=== PATIENT | female | born 1965 | race Caucasian/White ===

== ENCOUNTER 2017-08-29 10:32 | Emergency (ER) | payer MEDICAID, SELFPAY ==
[2017-08-29 10:33] VITALS: BP 174/92; PULSE 93; RESP 18; TEMP 36.6; O2SAT 97; BMI 43.0
--- NOTE | 2017-08-29 11:01 | CT_ITS ---
STUDY: CT ABDOMEN AND PELVIS WITHOUT CONTRAST REASON FOR EXAM: Female, 52 years old. Right flank pain RADIATION DOSAGE (If Supplied By Facility): CTDIvol = ( 22.49 ) mGy, DLP = ( 1219.29 ) mGycm TECHNIQUE: Transaxial images were obtained from the lower chest to the upper thighs without oral contrast, and without intravenous contrast. Sagittal and coronal images were reconstructed. Individualized dose optimization techniques were used for this CT. COMPARISON: None. FINDINGS: There is minimal dependent atelectasis in both lung bases. There is no pleural effusion. The heart is normal in size. The liver is unremarkable. There are small calcifications in the lumen of the gallbladder. The spleen is unremarkable. The pancreas is unremarkable. The adrenal glands are unremarkable. There are a few parapelvic cysts in the right kidney. There is no dilatation of the collecting system in the right kidney. The left kidney is unremarkable. There is no dilatation of the collecting system in the left kidney. The stomach is unremarkable. The small bowel is unremarkable. The colon is unremarkable. The appendix is surgically absent. There are minimal scattered vascular calcifications. The IVC is unremarkable. The retroperitoneum is unremarkable. There is no free fluid in the abdomen. The urinary bladder is unremarkable. There is absence of the uterus consistent with a prior hysterectomy. There are no abnormal masses in the adnexal regions. There are small phleboliths scattered in the lower pelvis. The soft tissues are unremarkable. There are mild degenerative changes in the visualized spine. CT/Abdomen/Pelvis without Cont IMPRESSION: There is no evidence of renal stones or urinary tract dilatation with attention to the right side. There are a few gallstones in the lumen of the gallbladder without evidence of wall thickening or surrounding inflammation on CT. There are no acute bowel abnormalities. There is no ascites, free air, inflammation or significant lymphadenopathy. There is hepatomegaly. Electronically Signed: Brittany Win MD at 12:46 EDT Tel Direct: [phone], Service support ,
[2017-08-29 11:31] LABS: Absolute Lymphocyte Count 2.41 X10^3/ul (0.83-4.51); Absolute Neutrophil Count 5.2 X10^3/uL (2.0-7.7); Basophil# 0.02 X10^3/uL; Basophil% 0.2 % (0-1); Eosinophil# 0.15 X10^3/uL; Eosinophils% 1.8 % (0-5); Hemoglobin 15.6 g/dl (12.0-15.0); Lymphocyte # 2.41 X10^3/ul (4.0); Lymphocyte % 29.5 % (19-41); Mean Corp Hgb Conc 32.5 g/gl (32-36); Mean Corpuscular Hgb 29.1 pg (27.0-32.0); Mean Corpuscular Volume 89.4 fL (81-99); Mean Platelet Vol. 9.9 fl (6.2-12.0); Monocyte# 0.37 X10^3/uL; Monocyte% 4.5 % (0-10); Neutrophil # 5.17 X10^3/uL (2.7-7.7); Neutrophil % 63.5 % (47-70); Platelet Count 264 K/mm3 (150-450); RBC Distribution Width CV 13.3 % (11.6-14.6); RBC Distribution Width SD 43.3 fl (35.1-43.9); Red Blood Count 5.37 M/mm3 (4.2-5.4); White Blood Count 8.2 K/mm3 (4.4-11.0)
[2017-08-29 11:36] LABS: POSITIVE COUNT NO; POSITIVE DIFFERENTIAL NO; POSITIVE MORPHOLOGY NO
[2017-08-29] MEDS: 0.9% Normal Saline 1,000 ML 250 ML IV (11:36)
[2017-08-29] MEDS: Ondansetron 4 MG/2 ML Vial 6 MG IV (11:37)
[2017-08-29 11:45] LABS: Anion Gap 8 (5-15); BUN 10 mg/dL (7-18); BUN/Creat Ratio 18.3 RATIO (10-20); Calcium,Total 9.1 mg/dL (8.5-10.1); Chloride 99 mmol/L (98-107); Creatinine, Serum 0.55 mg/dL (0.55-1.02); EST Glomerular Filtration Rate 124 mL/min (>60); Est Glom Filt Rate - Afr Amer 150 mL/min (>60); Estimated Creatinine Clearance 84.97 ml/min; Glucose 220 mg/dL (74-106); Potassium 4.4 mmol/L (3.5-5.1); Sodium Level 138 mmol/L (136-145)
[2017-08-29 12:32] VITALS: BP 154/79; PULSE 84; RESP 16; O2SAT 96
--- NOTE | 2017-08-29 12:32 | ED.RN ---
ARM SWOLLEN AROUND IV SITE. NO REDNESS NOTED AT THIS TIME. MD AWARE, ICE PACK APPLIED BY .
--- NOTE | 2017-08-29 13:06 | ED.DCSUM_ITS ---
- ER Visit Summary Date of Service: 08/29/17 Chief Complaint: Back and abdominal pain History of Present Illness: The patient is a 52 F she reports constant right- sided back and abdominal pain past 3 days. It does wax and wane. She states she cannot find a position of comfort. She states the pain is less if she lies on her right side. She does complain of nausea without vomiting. She denies dysuria, frequency, urgency or hematuria. She has no history of renal ureterolithiasis. She denies history of liver or gallbladder problems. She denies any intolerance to greasy or fried foods. She denies fever, chills night sweats. She denies cough, shortness of breath or difficulty breathing. She reports occasionally it is more difficult to breathe because of the pain. She denies any chest discomfort. She denies any reflux type symptoms. She denies hematemesis, melena hematochezia. Past medical history of type 1 diabetes and hypertension. She is status post appendectomy many years ago. Physical Examination: Blood pressure is 174/92. She is afebrile. Her vital signs are otherwise unremarkable. HEENT exam unremarkable. Heart is regular without murmur, gallop or rub. S1 and S2 are normal. Lungs are clear to auscultation with good movement of air bilaterally. Abdomen is remarkable for tenderness right side. She has a negative Locke sign. She has no CVA tenderness noted. She has no ventral or inguinal hernia. There is no guarding or rebound tenderness. There is minimal edema of the lower extremities which patient states is not abnormal for her. She informed me she was told this is secondary to her neuropathy. Patient is alert and oriented ?3. Motor is 5 over 5. Sensory is intact. DTRs are symmetric with no clonus or Babinski sign. Cranial 2 through 12 are intact. Cerebellar testing is normal. Test Results: CT of the abdomen and pelvis without contrast reveals cholelithiasis. There is no thickening of the gallbladder wall or pericholecystic fluid. CBC, BMP and liver are remarkable only for glucose of 220. Emergency Department Course and Treatment: The patient description location of pain concerned that this may represent ureterolithiasis with obstruction. UA was ordered along with CBC and BMP. She was medicated with morphine and Zofran. She had marked improvement. After reviewing CT and receiving interpretation by radiologist a hepatic panel was added. Treatment Plan: Since her pain is markedly better she is not febrile, and her hepatic and CBC unremarkable call was placed to Dr. Parvez Gasca for outpatient follow-up. Disposition: Disposition discharged home with opiate analgesia and surgical follow-up Impression: Right-sided abdominal pain secondary to biliary colic with cholelithiasis This note was generated with iAdvize dictation software. It may contain incorrect words, spelling, and punctuation that were not noted in review of the chart prior to signing ED Disposition - Plan for ED Patient: Disposition: Home or Assisted Living Chief Complaint: Flank Pain Instructions: Discharge Instructions for Gallstones Prescriptions: Oxycodone HCl/Acetaminophen [Percocet 5/325] 1 tab PO Q6H PRN PRN 5 Days #20 tab PRN Reason: Abdominal pain Referrals: [facility] Doctor,Out of [Primary Care Provider] - Marty Gasca MD [STAFF PHYSICIAN] - 3-5 Days
[2017-08-29] MEDS: oxyCODONE 5 MG Tablet PO (13:36)
[2017-08-29 13:41] LABS: AST(SGOT) 17 U/L (15-37); Alanine Aminotransfer ALT/SGPT 21 U/L (13-56); Albumin, Serum 3.3 g/dL (3.2-5.0); Alkaline Phosphatase 46 U/L (45-117); Bilirubin, Direct 0.08 mg/dL (0.00-0.30); Globulin 4.1 g/dL (2.2-4.2); Protein, Total 7.4 g/dL (6.4-8.2)
[2017-08-29 15:15] VITALS: BP 154/89; PULSE 99; RESP 18; O2SAT 99
== END 2017-08-29 15:16 | disposition home or self-care (01) ==
PROVIDERS: Emergency Provider Emergency Medicine
DX: K80.50 Calculus of bile duct without cholangitis or cholecystitis without obstruction (principal); R10.9 Unspecified abdominal pain; E10.40 Type 1 diabetes mellitus with diabetic neuropathy, unspecified; I10 Essential (primary) hypertension; F32.9 Major depressive disorder, single episode, unspecified; Z90.89 Acquired absence of other organs; Z79.899 Other long term (current) drug therapy
CPT/HCPCS: 74176; 80048; 80076; 85025; 96361; 96374; 99285; J7030; A4216; J2405

== ENCOUNTER → 2017-08-30 08:36 | Outpatient (CLI) | payer MEDICAID, SELFPAY ==
--- NOTE | 2017-08-30 08:39 | CT_ITS ---
STUDY: CT ABDOMEN AND PELVIS WITH CONTRAST REASON FOR EXAM: Female, 52 years old. Right flank pain RADIATION DOSAGE (If Supplied By Facility): CTDIvol = ( 18.74 ) mGy, DLP = ( 1335.61 ) mGycm TECHNIQUE: Transaxial images were obtained from the lower chest to the upper thighs with oral contrast. 100 ml of Isovue 300 contrast was administered. Sagittal and coronal images were reconstructed. Individualized dose optimization techniques were used for this CT. COMPARISON: CT abdomen and pelvis without contrast dated August 29, 2014 FINDINGS: There is minimal dependent atelectasis in both lung bases. There is no pleural effusion. The heart is normal in size. The liver is unremarkable. Faint calcifications are again seen in the lumen of the gallbladder. The spleen is unremarkable. The pancreas is unremarkable. The adrenal glands are unremarkable. There are parapelvic cysts in the right kidney. There is no dilatation of the collecting system in the right kidney. The left kidney is unremarkable. There is no dilatation of the collecting system in the left kidney. The stomach is unremarkable. There is a 2.6 cm diverticulum off the second portion of the duodenum. The colon is unremarkable. The appendix is surgically absent. There are minimal vascular calcifications. The inferior vena cava is unremarkable. The retroperitoneum is unremarkable. There is no free fluid in the abdomen. The urinary bladder is unremarkable. There is absence of the uterus likely from prior hysterectomy. There are no abnormal masses in the adnexal regions. The soft tissues of the abdominal wall are unremarkable. There are mild degenerative changes in the visualized spine. CT/Abdomen/Pelvis WITH Contrast IMPRESSION: There is no urinary tract dilatation bilaterally. Parapelvic cysts are again seen in the right kidney. There are no acute bowel abnormalities. There is no ascites, free air, or significant lymphadenopathy. Faint gallstones are again seen in the lumen of the gallbladder without evidence of wall thickening. Ultrasound can be obtained if further evaluation of the gallbladder is needed. Electronically Signed: Brittany Win MD at 11:24 EDT Tel Direct: [phone], Service support ,
[2017-08-30 08:48] LABS: Mucous, Urine 0 SEEN /hpf (<or=2+); Red Blood Cells-Urine 0 SEEN /hpf (0-5)
[2017-08-30 10:16] LABS: Color, Urine Yellow (Yellow); Glucose, Dipstick 1000 mg/dl (Normal); Ketone-Dipstick Negative (Negative); Leukocyte Esterase-Dipstick 25 /ul (Negative); Nitrite-Dipstick Negative (Negative); Occult Blood-Urine Negative /ul (Negative); Protein-Dipstick 15 mg/dl (Negative); Specific Gravity, Urine 1.025 (1.002-1.030); Urine Bilirubin Dipstick Negative (Negative); Urine Clarity Clear (Clear); Urine Urobilinogen Normal (Normal)
[2017-08-30 10:26] LABS: Bacteria RARE /hpf (None Seen); Squamous Epithelial Cells - UA 0-5 SEEN /hpf (5-10); White Blood Cells 0-5 SEEN /hpf (0-5)
[2017-08-30 10:27] LABS: Yeast-Urine RARE /hpf (None Seen)
== END ==
PROVIDERS: Visit Provider Surgery
DX: R10.9 Unspecified abdominal pain (principal)
CPT/HCPCS: 74177; 81001; Q9967

== ENCOUNTER → 2017-08-31 10:09 | Outpatient (CLI) | payer MEDICAID, SELFPAY ==
--- NOTE | 2017-08-31 10:11 | US_ITS ---
STUDY: ABDOMINAL ULTRASOUND - RIGHT UPPER QUADRANT REASON FOR VISIT: Female, 52 years old. Right upper quadrant abdominal pain for one week. TECHNIQUE: Ultrasound evaluation of the right upper quadrant was performed with real-time and static bran-scale imaging. TECHNICAL QUALITY: Adequate. COMPARISON: CT the abdomen and pelvis dated August 30, 2017. FINDINGS: Liver: The liver measures 18.3 cm. There is a heterogeneous echogenicity of the liver. The bile ducts are within normal limits. There is hepatic color flow. The direction of portal flow is hepatopetal. There is no demonstrated mass lesion. Gallbladder: There is a markedly distended gallbladder. The gallbladder wall measures 2.9 mm. There is a positive sonographic Locke's sign. There is no pericholecystic fluid. There are multiple echogenic structures within the gallbladder, consistent with multiple gallstones. Common Bile Duct (C.B.D.): The common bile duct measures 5.0 mm. Pancreas: Normal size of the head, body and tail of the pancreas. There is increased echogenicity of the pancreas. There is no demonstrated pancreatic mass or cyst. Right Kidney: Normal size of the right kidney. The right kidney measures 14.0 x 6.2 x 6.6 cm. Normal renal cortex. The right cortex measures 1.8 cm. There is a parapelvic cyst at the upper pole the right kidney measuring 2.2 x 1.9 x 2.2 cm. There is no right hydronephrosis. US/Gallbladder IMPRESSION: 1. Very distended gallbladder suggesting gallbladder hydrops. 2. Cholelithiasis with positive sonographic Locke sign suggests sequela of acute cholecystitis. 3. Common bile duct is at the upper limits of normal in size. 4. Hepatic steatosis. Electronically Signed: Renetta Jon MD at 11:30 EDT , Service support ,
== END ==
PROVIDERS: Visit Provider Surgery
DX: K80.20 Calculus of gallbladder without cholecystitis without obstruction (principal); R10.11 Right upper quadrant pain
CPT/HCPCS: 76705

== ENCOUNTER 2017-09-06 07:40 | Day surgery (SDC) | payer MEDICAID, SELFPAY ==
[2017-09-06] VITALS (7 sets, daily range): BP systolic 113–150; BP diastolic 73–80; PULSE 85–103; RESP 14–16; TEMP 35.7–36.5; O2SAT 92–98; BMI 42.7
--- NOTE | 2017-09-06 | GALL_PTH ---
PATIENT: NICKO CROCKER I LOC: [facility] [place] U#:[id number] AGE/SX: 52/F ROOM: RE09/06/[address]: Dr. Marty Gasca MD : 1965 BED: DIS: 09/06/2017 SPEC #: [id number] RECD: 09/06/17 11:22 STATUS: SAMSON LEONOR #: [id number] DEJA: 09/06/17 00:[address]: Marty Gasca DEPT: SURGICAL PATHOLOGY RECD BY: Sung Hoskins ENTERED: 09/06/17 11:23 SP TYPE: ADITHYA PARKER DR: Tanya Colvin Tissues: Gallbladder, NOS Procedures: Surgery Specimen Level III HEADER OPERATION: Laparoscopic cholecystectomy PRE-OP DIAGNOSIS: Calculus of gallbladder with acute on chronic cholecystitis without obstruction; abdominal pain RU TISSUE SUBMITTED: Gallbladder MICROSCOPIC DIAGNOSIS Gallbladder: Chronic cholecystitis and cholelithiasis. SJ:cipriano 4/6/18 MICROSCOPIC DESCRIPTION Slides are reviewed. GROSS DESCRIPTION Received is one container labeled with the patient's name and designated gallbladder. The specimen consists of a gallbladder measuring 10.5 x 3.8 x 2 cm. The external surface is smooth and glistening. Focally, it is granular, hemorrhagic and contains cautery artifact. The lumen of the gallbladder contains mucoid bile and black calculi ranging in size from 0.5 to 1 cm. The mucosa is bile-stained and without any mass lesions. The gallbladder wall averages 0.2 cm in thickness and is free of mass lesions. G[employer]ination Specialist sections of the gallbladder and the cystic duct are submitted in one cassette. / AM:cipriano 09/06/17 TC:3 CPT: 95708
--- NOTE | 2017-09-06 07:47 | EKG12_ITS ---
Test Reason : PREOP Blood Pressure : / mmHG Vent. Rate : 095 BPM Atrial Rate : 095 BPM P-R Int : 134 ms QRS Dur : 100 ms QT Int : 362 ms P-R-T Axes : 010 -52 013 degrees QTc Int : 454 ms Normal sinus rhythm Left anterior fascicular block Abnormal ECG No previous ECGs available Confirmed by MARIANNA MUELLER, FRED ([id number]), assistant production editor JIMY DUONG ([id number]) on 09/11/2017 9:43:29 AM Referred By: Marty Gasca Confirmed By:FRED CABRAL MD
[2017-09-06 08:30] LABS: Bedside Glucose 213 mg/dL (70-110)
[2017-09-06 08:31] LABS: Hemoglobin A1c 10.6 % (4.2-6.3)
--- NOTE | 2017-09-06 08:46 | DCINST_ITS ---
Discharge Diet: Light diet - advance as tolerated Discharge Activity: May Not Drive - for 2-3 days or while taking narcotic pain medications., - - Do not drive, work heavy equipment or sign legal documents for 24 hours. May shower in (days): 1 - with the bandage in place. Additional Activity Instructions:: Pain medication may cause nausea. You should typically eat light foods as you take your pain medications. Pain medication may also cause constipation. If this is a problem for you, please discuss with your doctor. Call your doctor if your incision/area has: Continuous Slow Oozing, Sudden Increased Bleeding, Increased Pain/ Swelling, Increased Redness, Foul Smelling Discharge Call your doctor if you observe: Fever of 101 or Higher Suture Line Care: Avoid Pulling/Pushing, Avoid Pinching/Bending Additional Dressing/Incision Instructions:: Leave operative bandaids on for 2 days. When you remove dressing, leave Steri-Strips on until your follow-up appointment, or until the Steri-Strips fall off on their own. Allergies/Adverse Reactions: Allergies Penicillins Allergy (Verified 09/04/17 14:55) Hives Medications to take at Discharge Duloxetine Hcl [Cymbalta] 1 tab PO DAILY 08/29/17 Lisinopril [Lisinopril] 1 tab PO DAILY 08/29/17 Novolog Mix 70-30 Vial 45 units SQ BID 08/29/17 Oxycodone HCl/Acetaminophen [Percocet 5/325] 1 tab PO Q6H PRN PRN 5 Days #20 tab 08/29/17 traMADol [Ultram] 2 tab PO BID 08/29/17 Oxycodone HCl/Acetaminophen [Percocet 5/325] 1 - 2 tab PO Q4H PRN PRN 4 Days # 30 tab 09/06/17 The following prescriptions were given: Oxycodone HCl/Acetaminophen [Percocet 5/325] 1 - 2 tab PO Q4H PRN PRN 4 Days # 30 tab PRN Reason: Pain Primary Care Physician: Tanya Colvin [Primary Care Provider] - Please Follow Up With: Marty Gasca MD - Please call [phone] to schedule an appointment. When: 7 days after your surgery.
--- NOTE | 2017-09-06 08:46 | PCM.OPRPT ---
Problem List (1) Calculus of gallbladder with acute and chronic cholecystitis without obstruction Status: Acute (2) Right upper quadrant pain Status: Acute Report of Operation Date of Procedure: 09/06/17 Pre-Operative Diagnosis: k80.12 calculus of the gallbladder with acute on chronic cholecystitis without obstruction. r10.11 right upper quadrant abdominal pain Post-Operative Diagnosis: Same Surgery/Procedure Performed:: 86913 laparoscopic cholecystectomy Type of Anesthesia:: General Anesthesiologist: Chente Chang Description of Procedure: Patient was brought in the operating room placed in the supine position. Under excellent general endotracheal the patient the abdomen was sterilely prepped and draped in the usual fashion. Local was injected supraumbilically incision was carried down to the fascia the fascia was grasped with a Pako. Varies needle was placed inside the abdomen. The abdomen was insufflated to 15 torr. A 10/12 trocar was placed without difficulty. Patient was placed up in the head up and rotated the left position. The fundus of the gallbladder was grasped retracted in cephalad direction moderate amount of adhesions were taken off of the liver and the gallbladder with electrocautery. I dissected out the cystic duct. I place hemoclips proximally and distally ligated the duct. Identified the cystic artery. Please Hem-o-haley clips proximally and distally and ligated the artery. I deliver the gallbladder from the gallbladder bed with use of electrocautery had no spillage of bile and no spillage of stones. I placed a specimen a specimen bag delivered through the umbilical port without difficulty. Reinflated the abdomen. I inspected the right upper quadrant used electrocautery for good hemostasis on the liver bed. I remove the trochars under direct visualization. Good hemostasis was noted. Close the fascia the umbilical port with a [id number]-uw-[id number] stitch of 0 Vicryl. Skin incisions were closed with subcuticular stitches of 4-0 Monocryl. Steri-Strips are applied sterile dressings were applied and the patient tolerated the procedure well. - Admit VTE Documentation VTE Present on Admission: No VTE Mechan Device Prophylaxis: SCD's VTE Pharm Prophylaxis ordered?: No Reason prophylaxis not ordered:: Treatment Not Indicated
[2017-09-06] MEDS: Clindamycin 900 MG/50 ML BAG 75 MG IV (08:48)
[2017-09-06] MEDS: Bupivacaine Mpf 0.5% 30 ML VIAL (08:58)
[2017-09-06 10:05] LABS: Bedside Glucose 216 mg/dL (70-110)
== END 2017-09-06 11:55 | disposition home or self-care (01) ==
LOC: SDC 07:40 → AC 07:41
PROVIDERS: Anesthesiology; Visit Provider Surgery
PROC: (CPT 47610; principal; 2017-09-06 08:45)
DX: K80.12 Calculus of gallbladder with acute and chronic cholecystitis without obstruction (principal); E11.40 Type 2 diabetes mellitus with diabetic neuropathy, unspecified; I10 Essential (primary) hypertension; F41.9 Anxiety disorder, unspecified; F32.9 Major depressive disorder, single episode, unspecified; Z87.19 Personal history of other diseases of the digestive system; Z87.448 Personal history of other diseases of urinary system; Z78.0 Asymptomatic menopausal state; Z79.4 Long term (current) use of insulin; Z79.899 Other long term (current) drug therapy
CPT/HCPCS: 47562; 82962; 83036; 88304; 93005; J7120; J2405

== ENCOUNTER 2017-09-08 09:51 | Emergency (ER) | payer MEDICAID, SELFPAY ==
[2017-09-08 09:52] VITALS: BP 159/76; PULSE 102; RESP 16; TEMP 36.7; O2SAT 98; BMI 94.7
--- NOTE | 2017-09-08 10:05 | NURSING ---
DR JEROME PAGED
--- NOTE | 2017-09-08 10:09 | ED.DCSUM_ITS ---
- ER Visit Summary Date of Service: 09/08/17 Chief Complaint: [] Burning at umbilicus status post cholecystectomy History of Present Illness: The patient is a 52 F [] history diabetes she had reports unremarkable cholecystectomy by Dr. Gasca went fine no complications that she reports Sunday she began having a sense of burning around the umbilical port site she noticed no drainage no warmth, she is on Percocet but each time she takes a Percocet tablet she has nausea and then starts to vomit she has been able to take p.o. liquids, she is passing gas per rectum her urine outputs been normal her blood sugars have been within normal range. The other port sites are unremarkable and in fact she takes her finger and points directly to the umbilical port site as the only area of pain and she complains of burning here, her review of systems otherwise negative Physical Examination: [] She is a short stocky woman she is in no distress her vitals are within normal range afebrile HEENT cardiac exam negative lungs are clear heart tones are normal the abdomen is soft the port sites are intact she has no signs of rebound or guarding in fact her only complaint of pain is around the umbilical port site the Steri-Strips are intact they are to the areas dry. There is no fluctuance or warmth or drainage I cannot really reproduce the pain anyway by palpation, there is no signs of a hernia or infection I can actually shake her abdomen and it causes her no pain her upper lower extremities are unremarkable Test Results: [] Emergency Department Course and Treatment: [] All the above IV fluids screening labs are obtained I spoke with Dr. Gasca discussed the case with him in detail will obtain screening labs treat her pain Labs are all unremarkable she is feeling better abdomen soft and again nontender just this sense of burning to the umbilical region that is better again we did discuss case Dr. Gasca given all the above she is comfort with discharge home we will switch to [place] and Helen have helped Dr. Gasca next few days and return for change in symptoms Treatment Plan: [] Disposition: [] Home stable Impression: [] Umbilical burning pain related to surgical port site status post laparoscopic cholecystectomy This note was generated with easy2comply ([employer])ation software. It may contain incorrect words, spelling, and punctuation that were not noted in review of the chart prior to signing ED Disposition - Plan for ED Patient: Chief Complaint: Abd Pain Referrals: Tanya Colvin [Primary Care Provider] -
[2017-09-08 10:24] LABS: Absolute Neutrophil Count 8.6 X10^3/uL (2.0-7.7); Basophil# 0.03 X10^3/uL; Basophil% 0.3 % (0-1); Eosinophils% 0.9 % (0-5); Hematocrit 46.2 % (37-47); Hemoglobin 15.1 g/dl (12.0-15.0); Lymphocyte % 16.6 % (19-41); Mean Corp Hgb Conc 32.7 g/gl (32-36); Mean Corpuscular Hgb 29.3 pg (27.0-32.0); Mean Corpuscular Volume 89.5 fL (81-99); Mean Platelet Vol. 9.6 fl (6.2-12.0); Monocyte# 0.71 X10^3/uL; Monocyte% 6.2 % (0-10); Neutrophil # 8.63 X10^3/uL (2.7-7.7); Neutrophil % 75.6 % (47-70); POSITIVE COUNT NO; POSITIVE DIFFERENTIAL NO; POSITIVE MORPHOLOGY NO; Platelet Count 310 K/mm3 (150-450); RBC Distribution Width CV 13.7 % (11.6-14.6); RBC Distribution Width SD 44.8 fl (35.1-43.9); Red Blood Count 5.16 M/mm3 (4.2-5.4); White Blood Count 11.4 K/mm3 (4.4-11.0)
[2017-09-08] MEDS: Morphine 4 MG/ML Syringe IV (10:27)
[2017-09-08] MEDS: Ondansetron 4 MG/2 ML Vial IV (10:27)
[2017-09-08 10:35] LABS: AST(SGOT) 18 U/L (15-37); Alanine Aminotransfer ALT/SGPT 33 U/L (13-56); Alkaline Phosphatase 47 U/L (45-117); Anion Gap 8 (5-15); BUN 14 mg/dL (7-18); BUN/Creat Ratio 18.7 RATIO (10-20); Bilirubin, Direct 0.13 mg/dL (0.00-0.30); Calcium,Total 9.2 mg/dL (8.5-10.1); Chloride 98 mmol/L (98-107); Creatinine, Serum 0.75 mg/dL (0.55-1.02); EST Glomerular Filtration Rate 86 mL/min (>60); Est Glom Filt Rate - Afr Amer 104 mL/min (>60); Estimated Creatinine Clearance 62.31 ml/min; Globulin 4.8 g/dL (2.2-4.2); Glucose 241 mg/dL (74-106); Lipase 113 U/L (73-393); Potassium 4.7 mmol/L (3.5-5.1); Protein, Total 7.8 g/dL (6.4-8.2); Sodium Level 135 mmol/L (136-145)
[2017-09-08 10:46] LABS: Pregnancy, Serum, hCG Quali. NEGATIVE Negative (0-9 Nonpreg)
[2017-09-08 11:03] LABS: Bacteria 0 SEEN /hpf (None Seen); Mucous, Urine 0 SEEN /hpf (<or=2+); Red Blood Cells-Urine 0 SEEN /hpf (0-5); White Blood Cells 0 SEEN /hpf (0-5)
[2017-09-08 11:07] LABS: Color, Urine Yellow (Yellow); Glucose, Dipstick 1000 mg/dl (Normal); Ketone-Dipstick 15 mg/dl (Negative); Leukocyte Esterase-Dipstick Negative /ul (Negative); Nitrite-Dipstick Negative (Negative); Occult Blood-Urine Negative /ul (Negative); Protein-Dipstick 15 mg/dl (Negative); Specific Gravity, Urine 1.015 (1.002-1.030); Urine Bilirubin Dipstick Negative (Negative); Urine Clarity Clear (Clear); Urine Urobilinogen Normal (Normal)
[2017-09-08 11:14] LABS: Squamous Epithelial Cells - UA 0-5 SEEN /hpf (5-10)
--- NOTE | 2017-09-08 12:12 | ED.DEP ---
ED Disposition - Plan for ED Patient: Chief Complaint: Abd Pain Instructions: ED Abdominal Pain Unkn Cause Prescriptions: Hydrocodone Bitart/Apap 5-325 [[place] 5/325] 1 - 2 tab PO Q4H PRN PRN #12 tab PRN Reason: Pain Referrals: Tanya Colvin [Primary Care Provider] -
--- NOTE | 2017-09-08 12:14 | DCINST.ED_ITS ---
ED Disposition - Plan for ED Patient: Chief Complaint: Abd Pain Instructions: ED Abdominal Pain Unkn Cause Prescriptions: Hydrocodone Bitart/Apap 5-325 [[place] 5/325] 1 - 2 tab PO Q4H PRN PRN #12 tab PRN Reason: Pain Ondansetron [Zofran Odt] 4 mg PO Q8H PRN PRN #10 tab PRN Reason: Nausea Referrals: Tanya Colvin [Primary Care Provider] -
[2017-09-08 12:26] VITALS: BP 145/78; PULSE 90; RESP 14; O2SAT 99
== END 2017-09-08 12:27 | disposition home or self-care (01) ==
PROVIDERS: Emergency Provider Emergency Medicine
DX: R10.33 Periumbilical pain (principal); Z90.49 Acquired absence of other specified parts of digestive tract; R11.2 Nausea with vomiting, unspecified; E11.9 Type 2 diabetes mellitus without complications; Z79.4 Long term (current) use of insulin; Z79.899 Other long term (current) drug therapy
CPT/HCPCS: 80048; 80076; 81001; 83690; 84703; 85025; 96361; 96374; 96375; 99283; J7030; J7040; A4216; J2405

== ENCOUNTER → 2017-09-27 12:04 | Outpatient (CLI) | payer MEDICAID, SELFPAY ==
[2017-09-27 13:49] LABS: AST(SGOT) 18 U/L (15-37); Alanine Aminotransfer ALT/SGPT 27 U/L (13-56); Albumin, Serum 3.2 g/dL (3.2-5.0); Alkaline Phosphatase 49 U/L (45-117); Globulin 4.5 g/dL (2.2-4.2); Protein, Total 7.7 g/dL (6.4-8.2)
== END ==
PROVIDERS: Visit Provider Physician Assistant
DX: R10.11 Right upper quadrant pain (principal)
CPT/HCPCS: 36415; 80076

== ENCOUNTER → 2017-12-26 12:20 | Outpatient (CLI) | payer MEDICAID, SELFPAY ==
--- NOTE | 2017-12-26 12:21 | CT_ITS ---
STUDY: CT ABDOMEN AND PELVIS WITH CONTRAST REASON FOR EXAM: Female, 52 years old. Right flank pain RADIATION DOSAGE (If Supplied By Facility): CTDIvol = ( 14.73 ) mGy, DLP = ( 1071.10 ) mGycm TECHNIQUE: Transaxial images were obtained from the dome of the diaphragm to the symphysis pubis without oral contrast. 100CC ml of Isovue 300 contrast was administered. Sagittal and coronal images were reconstructed. Individualized dose optimization techniques were used for this CT. COMPARISON: 08/30/2017 FINDINGS: The visualized lung bases are unremarkable. The visualized portions of the heart are within normal limits. There is decreased attenuation of the liver consistent with steatosis. There is non-visualization of the gallbladder, which may be secondary to either contraction or a prior cholecystectomy. Normal spleen. Normal pancreas. Normal bilateral adrenal glands. Normal right kidney. Normal left kidney. Normal visualized stomach. Normal small intestine. Normal colon. There is non-visualization of the appendix. Normal abdominal aorta. Normal inferior vena cava. Normal retroperitoneum. Normal urinary bladder. Normal abdominal wall. Normal osseous structures. CT/Abdomen/Pelvis WITH Contrast IMPRESSION: Fatty infiltration of liver, no discrete lesion. No obstructive uropathy, or CT evidence of an acute inflammatory process. No free intraperitoneal fluid, air, or suspicious adenopathy Electronically Signed: Al Gonzales MD at 13:01 EDT , Service support ,
[2017-12-26 12:35] LABS: CREATININE FINGERSTICK 0.7 mg/dL (0.55-1.02)
== END ==
PROVIDERS: Visit Provider Surgery
DX: R10.9 Unspecified abdominal pain (principal)
CPT/HCPCS: 74177; Q9967